=== PATIENT | male | born 1960 | race Caucasian/White ===

== ENCOUNTER → 2021-06-13 09:16 | Outpatient (CLI) | payer OTHER, SELFPAY ==
[2021-06-14 13:33] LABS: SARS-CoV-2 RNA PCR Positive
== END ==
PROVIDERS: PCP Family Medicine; Visit Provider Family Medicine
DX: U07.1 COVID-19 (principal)
CPT/HCPCS: C9803; U0003; U0005

== ENCOUNTER 2021-06-21 07:38 | Outpatient (RCR) | payer OTHER, SELFPAY ==
[2021-06-21 10:05] VITALS: BP 135/75; PULSE 72; RESP 20; TEMP 36.2; O2SAT 100
[2021-06-21] MEDS: ACETAMINOPHEN 325 MG TABLET 650 MG PO (10:07)
[2021-06-21] MEDS: FAMOTIDINE 20 MG TABLET PO (10:08)
[2021-06-21] MEDS: diphenhydrAMINE HCl CAP 25 MG CAPSULE PO (10:08)
[2021-06-21 11:34] VITALS: BP 124/73; PULSE 62; O2SAT 99
== END 2021-06-21 17:00 ==
LOC: AMCINF 07:38
PROVIDERS: PCP Family Medicine; Referring Provider Family Medicine; Visit Provider Internal Medicine Hematology & Oncology
DX: U07.1 COVID-19 (principal); I10 Essential (primary) hypertension
CPT/HCPCS: A9270; M0247

== ENCOUNTER 2021-10-13 12:47 | Outpatient (CLI) | payer OTHER, SELFPAY ==
--- NOTE | 2021-10-13 | ECHO_ITS ---
Patient Info Name: Fausto Morris Age: 61 years : 1960 Gender: Male Ht: 70 in Wt: 190 lbs BSA: 2.08 m2 HR: 62 bpm BP: 162 / 102 mmHg Heart Rhythm: Sinus Rhythm Exam Date: 10/13/2021 1:20 PM Exam Location: [facility] Patient Status: Outpatient Admit Date: 10/13/2021 Staff Ordering Physician: Jarred Bateman MD Spooler Operator Automatic: Raymond Salcedo, TANYA, RT Attending Provider: Jarred Bateman MD Referring Physician: Bhavana LOPEZ; Exam Type: CA echo doppler color flow Study Info Indications R01.1 - Cardiac murmur, unspecified Complete two-dimensional, color flow and Doppler transthoracic echocardiogram is performed. Strain analysis performed. Summary 1. Complete two-dimensional, color flow and Doppler transthoracic echocardiogram is performed. 2. Normal left ventricular size with borderline concentric hypertrophy. Left ventricular systolic function at the lower limit of normal with a calculated ejection fraction of 52%. Normal diastolic dysfunction. Normal global longitudinal strain. 3. Left atrial chamber dimension is mildly enlarged. 4. 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 There is mild to moderate mitral valve regurgitation. 5. There is mild tricuspid valve regurgitation. 6. No pulmonary hypertension, estimated pulmonary arterial systolic pressure is 34 mmHg. 7. Normal sinus rhythm. Left Ventricle Left ventricular chamber dimension is normal. Left ventricular systolic function is mildly reduced, estimated at 50-55%. There is mildly increased left ventricular wall thickness. Left ventricular septal wall motion is normal. The left ventricular diastolic function is normal. Global longitudinal strain is normal at -19 %. Right Ventricle Right ventricular chamber dimension is normal. Right ventricular systolic function is normal. Left Atria Left atrial chamber dimension is mildly enlarged. Right Atria Right atrial chamber dimension is normal. Aortic Valve The aortic valve is trileaflet. There is no aortic valve sclerosis. There is no aortic valve stenosis. There is no aortic valve regurgitation. Pulmonic Valve The pulmonic valve is normal. There is no pulmonic valve stenosis. There is trace pulmonic regurgitation. Mitral Valve The mitral valve has myxomatous leaflets. There is no mitral valve stenosis. 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 There is mild to moderate mitral valve regurgitation. Tricuspid Valve The tricuspid valve leaflets are normal. There is no significant tricuspid valve stenosis. There is mild tricuspid valve regurgitation. No pulmonary hypertension, estimated pulmonary arterial systolic pressure is 34 mmHg. Pericardium/Pleural The pericardium appears normal. There is no pericardial effusion. Inferior Vena Cava Normal inferior vena cava with >50% collapse upon inspiration consistent with Empty right atrial pressure, 10 mmHg. Aorta The aortic root size at the sinus of Valsalva is normal. The prox ascending aorta size is normal. Left Ventricular Outflow Tract Name Value Normal LVOT 2D LVOT Diameter 2.1 cm LVOT Doppler --------
== END 2021-10-13 12:48 | disposition home or self-care (01) ==
LOC: ANHCARD 12:49
PROVIDERS: PCP Family Medicine; Visit Provider Family Medicine
DX: R01.1 Cardiac murmur, unspecified (principal)
CPT/HCPCS: 93306

== ENCOUNTER 2022-02-23 01:19 | Day surgery (SDC) | payer OTHER, SELFPAY ==
[2022-02-22 15:00] VITALS: BMI 27.3
[2022-02-23] VITALS (10 sets, daily range): BP systolic 116–136; BP diastolic 71–85; PULSE 57–69; RESP 12–18; TEMP 36.6; O2SAT 93–99; BMI 28.3
[2022-02-23 07:44] LABS: Basophils Absolute Auto 0.1 K/mm3 (0.0-0.1); Basophils Percent Auto 0.9 % (0.2-1.2); Eosinophils Absolute Auto 0.3 K/mm3 (0-0.3); Eosinophils Percent Auto 3.3 % (0-4.4); Hematocrit 43.6 % (42.0-52.0); Hemoglobin 14.3 g/dL (14.0-18.0); Immature Granulocyte Absolute 0.09 K/mm3 (0.00-0.031); Lymphocytes Absolute Auto 2.02 K/mm3 (0.9-3.2); Lymphocytes Percent Auto 22.9 % (18.3-44.2); Mean Corpuscular HGB Conc 32.8 g/dl (32-36); Mean Corpuscular Hemoglobin 28.7 pg (26-34); Mean Corpuscular Volume 87.6 fl (80-100); Mean Platelet Volume 9.7 fl (7.4-10.4); Monocytes Absolute Auto 0.8 K/mm3 (0.1-0.6); Monocytes Percent Auto 9.1 % (2.6-8.5); Neutrophils Absolute Auto 5.6 K/mm3 (1.3-6.7); Neutrophils Percent Auto 62.8 % (45.5-73.1); Platelet Count Result 283 k/mm3 (150-375); Red Blood Count 4.98 M/mm3 (4.6-6.20); Red Cell Distribution Width 12.9 % (11.5-14.5); White Blood Count 8.8 K/mm3 (4.5-10.0)
[2022-02-23 07:52] LABS: Anion Gap 12 mmol/L (8-16); Blood Urea Nitrogen 15 mg/dL (9-20); Calcium 8.9 mg/dL (8.4-10.2); Carbon Dioxide 31 mmol/L (22-30); Chloride 99 mmol/L (98-107); Estimated CRCL calculation 71 ml/min; Estimated Glomerular Filt Rate > 60; Glucose 98 mg/dL (65-110); Potassium 3.7 mmol/L (3.4-5.0); Sodium 142 mmol/L (137-145)
--- NOTE | 2022-02-23 08:34 | WPDMODSED ---
Moderate Sedation Note-Pt Data Patient Data Diagnosis: Exertional dyspnea mitral regurgitation abnormal nuclear stress test Present Complaint: PARDO Procedure to be performed/Plan: left heart catheterization Allergies Allergy/AdvReac Type Severity Reaction Status Date / Time No Known Allergies Allergy Mild Verified 02/23/22 07:29 Home Medications Medication Instructions Recorded Confirmed Type M.V.I. Adult 1 tablet PO DAILY 02/22/22 02/22/22 History aspirin 81 mg chewable tablet 81 mg PO DAILY 02/22/22 02/22/22 History candesartan 8 mg tablet 8 mg PO DAILY 02/22/22 02/22/22 History escitalopram oxalate 10 mg tablet 10 mg PO DAILY 02/22/22 02/22/22 History indapamide 2.5 mg tablet 2.5 mg PO DAILY 02/22/22 02/22/22 History Current Medications: Active Medications Sodium Chloride (Normal Saline Iv) 500 mls @ 100 mls/hr IV CONT .Q5H [facility], [facility] Sedation/Anesthesia: No previous sedation/anesthesia problems (including family history). [facility] Social History Social History Smoking status: Former smoker Tobacco type: cigarettes Alcohol intake: former Substance use type: does not use Living arrangements: with family Spiritual care concerns: No Mod Sed Physical Exam Physical Exam Pre Procedural Exam: Normal: Appearance, Nose, Neck, Throat, Airway, Lungs, Heart Size, Heart Rate, Heart Rhythm, Neuro Exam and Extremities Hours since solid foods: 12 Hours since liquid intake: 12 Mallampati Classification: class II Internal Medicine - PN: Obj Da Vital Signs Vital Signs: Vital Signs - 24 hr 02/23/22 07:30 Temperature 36.6 C Pulse Rate 66 Respiratory Rate 16 Blood Pressure 136/79 Pulse Oximetry 98 Oxygen Delivery Room Air Meds/Results Medications: Active Medications Generic Name Dose Route Start Last Admin Trade Name Freq PRN Reason Stop Dose Admin Sodium Chloride 500 mls @ 100 mls/hr 02/23/22 07:00 Normal Saline Iv IV CONT .Q5H [facility] Labs CBC & Chem 7: 02/23/22 07:30 02/23/22 07:30 Labs: Laboratory Results - last 24 hr 02/23/22 02/23/22 07:30 07:30 WBC 8.8 RBC 4.98 Hgb 14.3 Hct 43.6 MCV 87.6 MCH 28.7 MCHC 32.8 RDW 12.9 Plt Count 283 MPV 9.7 Immature Gran % (Auto) 1.0 H Neut % (Auto) 62.8 Lymph % (Auto) 22.9 Howard % (Auto) 9.1 H Eos % (Auto) 3.3 Baso % (Auto) 0.9 Lymph # (Auto) 2.02 Howard # (Auto) 0.8 H Eos # (Auto) 0.3 Baso # (Auto) 0.1 Abs Immat Gran (auto) 0.09 H Absolute Neuts (auto) 5.6 Absolute Nucleated RBC 0.0 Nucleated RBC % 0.0 Sodium 142 Potassium 3.7 Chloride 99 Carbon Dioxide 31 H Anion Gap 12 BUN 15 Creatinine 1.00 Estim Creat Clear Calc 71 Estimated GFR > 60 Glucose 98 Calcium 8.9 ASA Classification/Sedation ASA Classification/Sedation ASA Class: II Emergent: No Risks: Risks, benefits and alternatives explained and patient/family accepted plan for sedation. Patient re-evaluated immediately prior to sedation.
--- NOTE | 2022-02-23 08:36 | PM.IMHP ---
H&P: HPI History of Present Illness Date/Time: 02/23/22 08:36 Chief Complaint: exertional dyspnea Narrative: this is a 61-year-old man who was referred to our practice because of mitral valve regurgitation. He has been reporting symptoms of exertional dyspnea and fatigue since having coronavirus in 2020. He was found to have myxomatous appearing mitral valve leaflets and moderate MR. He had a nuclear stress test done in the office which suggests an anterior wall infarction. The patient's electrocardiogram and wall motion analysis JAMES however do not suggest this. For further evaluation of this a angiogram has been recommended and this is scheduled for today. [facility] Social History Social History Smoking status: Former smoker Tobacco type: cigarettes Alcohol intake: former Substance use type: does not use Living arrangements: with family Spiritual care concerns: No Meds Home Medications and Allergies Home Medications Medication Instructions Recorded Confirmed Type M.V.I. Adult 1 tablet PO DAILY 02/22/22 02/22/22 History aspirin 81 mg chewable tablet 81 mg PO DAILY 02/22/22 02/22/22 History candesartan 8 mg tablet 8 mg PO DAILY 02/22/22 02/22/22 History escitalopram oxalate 10 mg tablet 10 mg PO DAILY 02/22/22 02/22/22 History indapamide 2.5 mg tablet 2.5 mg PO DAILY 02/22/22 02/22/22 History Allergies Allergy/AdvReac Type Severity Reaction Status Date / Time No Known Allergies Allergy Mild Verified 02/23/22 07:29 Vital Signs Vital Signs - 24 hr 02/23/22 07:30 Temperature 36.6 C Pulse Rate 66 Respiratory Rate 16 Blood Pressure 136/79 Pulse Oximetry 98 Oxygen Delivery Room Air Exam Const: General: comfortable and no acute distress HENMT: Mouth: Yes moist mucous membranes Eyes: Sclera: sclerae normal Pupils: Equal, round and reactive pupils present Neck: Neck: supple and no JVD Other: Carotid pulses are intact and without bruits Resp: Effort & Inspection: normal respiratory effort Auscultation: clear to auscultation bilaterally Cardio: Rate: regular rate Rhythm: regular rhythm Other: soft holosystolic apical murmur GI: GI Palp: Yes Soft to palpation Auscultation: normal bowel sounds : Male General Exam: Yes normal external exam Skin: General skin exam: normal color Neuro: Other: alert and oriented x3 Extrem: General: normal to inspection H&P: Results Labs Labs: Short CBC 02/23/22 Range/Units 07:30 WBC 8.8 (4.5-10.0) K/mm3 Hgb 14.3 (14.0-18.0) g/dL Hct 43.6 (42.0-52.0) % Plt Count 283 (150-375) k/mm3 BMP 02/23/22 07:30 Sodium 142 Potassium 3.7 Chloride 99 Carbon Dioxide 31 H BUN 15 Creatinine 1.00 Glucose 98 Calcium 8.9 Assessment and Plan Assessment and plan (1) Abnormal stress test: Code(s): R94.39 - Abnormal result of other cardiovascular function study Status: Acute Plan this is a 61-year-old man not previously known to have coronary disease. He is undergoing evaluation because of valvular heart disease and exertional dyspnea. A nuclear stress test was abnormal suggesting there might have been a previous anterior infarction. For further evaluation of this angiography has been scheduled for today. Cesar Alvarenga MD FACC
--- NOTE | 2022-02-23 09:04 | WPDCARDPROC ---
Cardiac Cath Procedure Note Date of procedure:: 02/23/22 Performing physician:: Cesar Alvarenga MD Indication:: exertional dyspnea mitral regurgitation abnormal nuclear stress test Brief clinical history:: this is a 61-year-old man with no history of coronary disease. He underwent stress testing to investigate dyspnea and the findings indicated evidence of a previous anterior infarction. In this situation angiogram has been recommended Procedure Procedure performed:: left ventriculogram coronary angiogram Angio-Seal to right femoral artery Sedation/Medication given:: fentanyl 50 mg Versed 2 mg case start time 8:44 a.m. case end time 8:58 a.m. sedation provided by Nieves Matthews RN, trained observer Access site:: right femoral artery Estimated blood loss:: 20 cc Procedure note:: patient was brought to the cardiac catheterization lab in the postabsorptive state where the right femoral triangle was prepared and draped in usual fashion. Anesthesia was provided with 1% lidocaine infiltrated locally. Using modified Seldinger technique a 5 Moldovan sheath was placed into the right common femoral artery and then left heart catheterization carried out. A 5 Moldovan angled pigtail catheter was used to measure left-sided hemodynamics and to perform a left ventriculogram in the HUMPHREYS projection. Following this standard 5 Moldovan FL4 catheter was used to engage and inject left coronary artery and then a 5 Moldovan JR4 catheter was used to engage inject the right coronary artery. Procedure was then terminated an angiogram was done of the femoral artery through the sheath after which a 6 Moldovan Angio-Seal device was deployed with a good hemostatic result. There were no apparent complications and he left the supervisor dental laboratory with no signs of a groin hematoma. Findings:: Hemodynamics: Central aortic pressure is 126 over 74 left ventricle 126/3 end-diastolic 12 systolic across the aortic valve. Left ventricle: The LV is mildly enlarged. There is modest global hypokinesia noted with a global ejection fraction of 45%. Mild angiographic evidence of mitral regurgitation is seen. The left main coronary artery is widely patent the left anterior descending is a moderate caliber artery extending down to around the apex. The LAD and its branches are smooth and angiographically normal in appearance the circumflex is a medium caliber vessel giving rise to the marginal branches. The circumflex and its branches are angiographically smooth and normal in appearance. The right coronary artery is large caliber and dominant to the posterior circulation. The right coronary is somewhat tortuous but otherwise angiographically smooth and normal in appearance. Conclusion:: 1. Right coronary dominant circulation with no angiographic evidence of coronary artery disease 2. modest left ventricular systolic dysfunction 3. mild MR as judged by left ventriculogram 4. false-positive nuclear stress test Cesar Alvarenga MD FACC
--- NOTE | 2022-02-23 12:00 | SUR.PHASEII ---
1139 Dr. Cho contacted regarding patient and his 's request to speak with him to review his test results prior to being discharged.
--- NOTE | 2022-02-23 14:01 | SUR.PHASEII ---
Cristiano Randall APRN at bedside discussing patient's cath findings and other recent testing on behalf of Dr. Cho. Patient and patient's had their questions answered. He was discharged in stable condition following discharge instructions including activity/driving restrictions post cath and moderate sedation as well as instructions regarding new medications and follow up. They verbalized understanding of instructions and had no further questions.
== END 2022-02-23 13:40 | disposition home or self-care (01) ==
PROVIDERS: PCP Family Medicine; Visit Provider Specialist
PROC: 4A023N7 Measurement of Cardiac Sampling and Pressure, Left Heart, Percutaneous Approach (ICD-10-PCS; CPT 93452; principal; 2022-02-23 08:30)
DX: R94.39 Abnormal result of other cardiovascular function study (principal); I77.1 Stricture of artery; R06.09 Other forms of dyspnea; I34.0 Nonrheumatic mitral (valve) insufficiency; Z87.891 Personal history of nicotine dependence; Z79.82 Long term (current) use of aspirin
CPT/HCPCS: 36415; 80048; 85025; 93458; C1760; C1887; C1894; G0269; J1644; J2250; J3010; J7040

== ENCOUNTER 2022-05-22 12:15 | Emergency (ER) | payer OTHER, SELFPAY | END 2022-05-22 13:15 | disposition left against medical advice (07) | PROVIDERS: Emergency Provider Nurse Practitioner Family; PCP Family Medicine | DX: Z53.21 Procedure and treatment not carried out due to patient leaving prior to being seen by health care provider (principal) | CPT/HCPCS: 99199 ==

== ENCOUNTER 2022-06-27 13:30 | Outpatient (RCR) | payer SELFPAY ==
[2022-03-16 09:05] VITALS: PULSE 67
== END 2022-07-06 08:24 | disposition home or self-care (01) ==
LOC: ANHCPREHAB 13:30
PROVIDERS: PCP Family Medicine; Visit Provider Internal Medicine Cardiovascular Disease
DX: I50.9 Heart failure, unspecified (principal)
CPT/HCPCS: 93798; 99199

== ENCOUNTER 2024-10-28 00:32 | Day surgery (SDC) | payer OTHER, SELFPAY ==
[2024-10-15 11:27] VITALS: BMI 28.0
--- OUTSIDE RECORDS SUMMARY | 2024-10-28 00:34 | XMS_ITS | Clinical Summary ---
Author Organization [facility] Address [address] [place] [address] Care Team Providers Care Tour Narrator Name Role Phone Jarred Bateman MD Primary Care Provider [phone] Source Comments [facility],non-owned Affiliates and Associated Physician Practices is amultiple site organization consisting of ambulatory clinics and hospital sitesin [place], [place], [place]. This disclosure is being madepursuant to the Care Everywhere program and may not contain all information available regarding this patient. Last updated 18.[facility] Allergies No known active allergies Medications * Be aware that medications may not be up to date on this document. Alwaysverify current medications with the patient. lisinopril (PRINIVIL; ZESTRIL) 20 MG tablet TK 1 T PO QD 1 02/20/2019 Active indapamide (LOZOL) 2.5 MG tablet 03/01/2019 Active Social History Tobacco Use Types Packs/Day Years Used Date Smoking Tobacco: Never Smokeless Tobacco: Never Alcohol Use Standard Drinks/Week Comments Yes 0 (1 standard drink = 0.6 oz pur e alcohol) Sex and Gender Information Value Date Recorded Sex Assigned at Not on file Legal Sex Male 10:08 AM CDT Gender Identity Not on file Sexual Orientation Not on file Last Filed Vital Signs Vital Sign Reading Time Taken Comments Blood Pressure 120/82 04/13/2019 3:02 PM CDT Pulse 78 04/13/2019 3:02 PM CDT Temperature 37 C (98.6 F) 04/13/2019 3:02 PM CDT Respiratory Rate 18 04/13/2019 3:02 PM CDT Oxygen Saturation 96% 04/13/2019 3:02 PM CDT Inhaled Oxygen Concentration - - Weight 88.9 kg (196 lb) 04/13/2019 3:02 PM CDT Height 175.3 cm (5' 9 ) 04/13/2019 3:02 PM CDT Body Mass Index 28.94 04/13/2019 3:02 PM CDT Plan of Treatment Health Maintenance Due Date Last Done Comments COLOGUARD (AGES 45-75) - COL ON CA SCREENING 1960 COLON MONITORING 1960 COLONOSCOPY - COLON CA SCREENING 1960 CT COLONOGRAPHY - COLON CA SCREENING 1960 Colorectal Cancer Screening 1960 FIT - COLON CA SCREENING 1960 FLEX SIG - COLON CA SCREENING 1960 LIPID TESTING 1960 HIV SCREENING 10/10/1975 HEPATITIS C SCREENING 10/05/1978 DTAP/TDAP/TD VACCINES (1 - Tdap) 10/10/1979 PNEUMOCOCCAL VACCINE 50+ (1 of 1 - PCV) 2010 ZOSTER VACCINE (1 of 2) 2010 SCREENING FOR DIABETES 04/13/2019 COVID-19 VACCINE (1 - 2023-2 5 season) 2024 DEPRESSION SCREENING 06/17/2024 INFLUENZA VACCINE (Season Ended) 2025 Respiratory Syncytial Virus (RSV) Vaccine Pt: or over 60 yrs (1 - 1-dose 75+ series) 10/10/2035 HEPATITIS B VACCINE Aged Out No longe r eligible based on patient's age to complete this topic HIB VACCINE Aged Out No longer eligi ble based on patient's age to complete this topic HPV VACCINE Aged Out No longer eligi ble based on patient's age to complete this topic MENINGOCOCCAL (Group B) VACC INE SHARED DECISION-MAKING Aged Out No longer eligibl e based on patient's age to complete this topic MENINGOCOCCAL GROUPS A/C/Y/W VACCINE Aged Out No longer eligible b ased on patient's age to complete this topic Insurance [employer] Member Subscriber Plan / Payer (Ef fective 2005-Present) Name:Trino Rain Member ID:[id number] Relation to Subscriber:Self Name:TRINO RAIN Subscriber ID:[id number] Payer ID:Not on file Group ID:Not on file Type:HMO Address: [facility] [id number] [place] [id number] [employer] Member Subscriber Plan / Payer (Ef fective 2005-Present) Name:Trino Rain Member ID:[id number] Relation to Subscriber:Self Name:TRINO RAIN Subscriber ID:[id number] Payer ID:Not on file Group ID:Not on file Type:HMO Address: [facility] [id number] [place] [id number] [employer] Member Subscriber Plan / Payer (Ef fective 2005-Present) Name:Trino Rain Member ID:[id number] Relation to Subscriber:Self Name:TRINO RAIN Subscriber ID:[id number] Payer ID:Not on file Type:HMO Address: [address] [place] [id number] [employer] Care Teams Tour Narrator Relationship Specialty Start Date End Date Jarred Bateman MD [address] [place] [address] PCP - General Family Medicine 04/13/19
--- OUTSIDE RECORDS SUMMARY | 2024-10-28 00:34 | XMS_ITS | Referral Summary ---
Author Organization [facility] Address [address] [place] [address] Care Team Providers Care District Plant Supervisor Name Role Phone Jarred Bateman MD Primary Care Provider Encounters Date Type Department Care Team Description 10/07/2024 Results Follow-Up [facility] Cardiology [address] [place] [address] [address] [place] [phone] Elsi Sheehan MD 09/28/2024 2:00 PM CDT Ancillary Procedure [facility] Cardiology [address] [place] [address] [address] [place] [phone] Nonischemic cardiomyopathy (HCC); Nonrheumatic mitral valve insufficiency 08/27/2024 1:00 PM CDT Office Visit [facility] Cardiology [address] [place] [address] [address] [place] [phone] Elsi Sheehan MD Nonischemic cardiomyopathy (HCC) (Primary Dx); Nonrheumatic mitral valve insufficiency; Palpitations; PVC (premature ventricular contraction); Essential hypertension; Hyperlipidemia LDL goal <100 from Last 3 Months Allergies No known active allergies Medications multivitamin with minerals tablet Take 1 tablet by mouth daily Active Entresto 24-26 mg tablet TAKE 1 TABLET BY MOUTH TWICE DAILY 180 tablet 3 10/14/2023 Active metoprolol XL (TOPROL-XL) 25 mg extended release tabletIndication s:PVC (premature ventricular contraction) TAKE 1 TABLET(25 MG) BY MOUTH DAILY 90 tablet 2 04/20/2024 Active Active Problems Problem Noted Date Diagnosed Date Periodic limb movement 04/11/2023 Nonsmoker 04/11/2023 Obstructive sleep apnea 09/24/2022 Hypersomnia 07/23/2022 PVC (premature ventricular contraction) 03/07/20 Nonischemic cardiomyopathy 03/07/2022 Hyperlipidemia LDL goal <100 01/12/2022 Essential hypertension 01/12/2022 History of COVID-19 01/12/2022 Nonrheumatic mitral valve insufficiency 01/13/20 Weakness 01/12/2022 Other fatigue 01/12/2022 PARDO (dyspnea on exertion) 01/12/2022 Palpitations 01/12/2022 MVP (mitral valve prolapse) 01/12/2022 Long COVID 01/12/2022 Immunizations Immunization Administration Dates Next Due Pneumococcal Polysaccharide PPV23 06/11/2023 Social History Tobacco Use Types Packs/Day Years Used Date Smoking Tobacco: Former Cigarettes 0.5 3 0 06/17/1976 - 1979 Smokeless Tobacco: Never Tobacco Cessation:Counseling Given: Not Answered AUDIT-C Answer Date Recorded Q1: How often do you have a drink containing alc ohol? 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 Gender Identity Not on file Sexual Orientation Not on file Last Filed Vital Signs Vital Sign Reading Time Taken Comments Blood Pressure 98/66 08/27/2024 1:17 PM CDT Pulse 70 08/27/2024 1:17 PM CDT Temperature 36.8 C (98.3 F) 06/11/2023 2:09 PM INDUSTRIAL EDUCATION INSTRUCTOR Respiratory Rate 18 04/11/2023 1:51 PM CDT Oxygen Saturation 93% 08/27/2024 1:17 PM CDT Inhaled Oxygen Concentration - - Weight 89.8 kg (198 lb) 08/27/2024 1:17 PM CDT Height 175.3 cm (5' 9 ) 08/27/2024 1:17 PM CDT Body Mass Index 29.24 08/27/2024 1:17 PM CDT Plan of Treatment Not on file Procedures Procedure Name Priority Date/Time Associated Diagnosis Comments TRANSTHORACIC ECHO (TTE) COMPLETE W DOPPLER/CF WO CONTRAST Routine 09/28/2024 2:31 PM CDT Nonischemic cardiomyopathy (HCC) Nonrheumatic mitral valve insufficiency POCT LIPID PANEL Routine 08/27/2024 12:2 6 PM CDT Hyperlipidemia LDL goal <100 from Last 3 Months Results * TRANSTHORACIC ECHO (TTE) COMPLETE W DOPPLER/CF WO CONTRAST (09/28/2024 2:31 PM CDT) Anatomical Region Laterality Modality Ultrasound 09/28/2024 2:06 PM CDT Narrative 09/28/2024 2:[address] [facility] Cardiology [address] [facility] [address] [address] [address] [facility] [address], [place] [address] P:[phone] P:[phone] Echocardiographic Report Patient Name: TRINO RAIN R : 1960 Study Date: 09/28/2024 2:06:19 PM Gender: M Tech: Location: [facility] Provider: ELSI SHEEHAN Height(Cm): 175 BSA: 2.09 Weight(Kg): 89.8 Heart Rate: 68 BP: 98 / 60 Quality: Good Order Provider: ELSI SHEEHAN PROCEDURES: Echocardiographic Report: Transthoracic echocardiogram with complete 2D, M-Mode, and color Doppler examination. INDICATIONS: I42.8 Other cardiomyopathies and I34.0 Nonrheumatic mitral (valve) insufficiency. MEASUREMENTS: 2D/MM Value Range Doppler Value Range EF Mod BP 53 % [ 52 - 72 ] GARCIA Vmax 2.23 cm2 [ 2.00 - 4.00 ] EF Teich MM 70 % [ 52 - 72 ] AV Mean PG 5 mmHg LVIDd 2D 5.19 cm [ 4.20 - 5.80 ] AV Peak Timothy 1.43 m/s [ 1.00 - 1.70 ] LVIDd MM 5.54 cm [ 4.20 - 5.80 ] AV Peak PG 8 mmHg LVIDs 2D 2.71 cm [ 2.50 - 4.00 ] AV VTI 24.90 cm LVIDs MM 3.32 cm [ 2.50 - 4.00 ] LVOT Diam 2.04 cm [ 1.70 - 2.10 ] LVPWd 2D 1.03 cm [ 0.60 - 1.00 ] LVOT Peak Timothy 0.90 m/s [ 0.70 - 1.10 ] LVPWd MM 1.12 cm [ 0.60 - 1.00 ] LVOT VTI 17.20 cm IVSd 2D 1.14 cm [ 0.60 - 1.00 ] MV E Peak Timothy 0.80 m/s [ 0.60 - 1.30 ] IVSd MM 1.12 cm [ 0.60 - 1.00 ] MV A Peak Timothy 0.50 m/s [ 1.00 - 1.20 ] LA Dimension MM 3.72 cm [ 3.00 - 4.00 ] MV Decel Time 137 msec [ 104 - 258 ] AoR Diam MM 3.55 cm [ 3.10 - 3.70 ] PV Peak Timothy 1.42 m/s [ 0.40 - 0.80 ] LA Volume Index 32 cc/m2 [ 16 - 34 ] TR Peak Timothy 2.70 m/s [ 1.00 - 2.80 ] ACS MM 2.54 cm [ 1.50 - 2.60 ] TR Peak PG 29 mmHg RVSP 37.00 mmHg [ 10.00 - 36.00 ] Lateral E` 0.11 m/s [ 0.10 - 0.15 ] E` 0.06 m/s E/E` 7 2D/MM Value Range Doppler Value Range - FINDINGS: Interpretation Site: Exam was interpreted at [facility]. Left Ventricle: Normal left ventricular systolic function. No focal wall motion abnormalities. Normal left ventricular size. Normal left ventricular wall thickness. Normal left ventricular diastolic function. Ejection fraction is measured at 53 %. Global Longitudinal Strain is -19 %. GLS is normal. Right Ventricle: Normal right ventricular size. Normal right ventricular systolic function. Left Atrium: The left atrium is normal in size. Right Atrium: The right atrium is normal in size. Atrial Septum: Normal atrial septum. Mitral Valve: Mild mitral valve prolapse involving the anterior mitral leaflet. Mild mitral valve prolapse involving the posterior mitral valve. Mild mitral valve regurgitation. There is no hemodynamically significant mitral stenosis by Doppler. Aortic Valve: Normal appearance of the aortic valve. No evidence of hemodynamically significant aortic stenosis by Doppler. Trileaflet aortic valve. No aortic regurgitation. Tricuspid Valve: Normal appearance of the tricuspid valve. Estimated peak RVSP is 37 mmHg. Mild tricuspid regurgitation. Pulmonic Valve: Normal appearance of the pulmonic valve. No evidence of pulmonic regurgitation. Pericardium: Normal pericardium with no significant pericardial effusion. Aorta: Sinus of Valsalva is normal. IVC: Normal size and normal respiratory collapse consistent with normal right atrial pressure (<5 mmHg). Pulmonary Artery: Normal pulmonary artery size. CONCLUSIONS: Normal left ventricular systolic function. No focal wall motion abnormalities. Normal left ventricular size. Normal left ventricular wall thickness. Normal left ventricular diastolic function. Ejection fraction is measured at 53 %. Global Longitudinal Strain is -19 %. GLS is normal. Mild mitral valve prolapse involving the anterior and posterior mitral leaflets. Mild mitral valve regurgitation. Estimated peak RVSP is 37 mmHg. Mild tricuspid regurgitation. Electronically Signed By: Dr. Lora Dawson [facility] 09/28/2024 2:59:23 PM CDT Procedure Note Lora Dawson MD - 09/28/2024 [facility] Cardiology [address] [facility] [address] [address] [address] [facility] [address], [place] [address] P:[phone] P:[phone] Echocardiographic Report Patient Name: TRINO RAIN R : 1960 Study Date: 09/28/2024 2:06:19 PM Gender: M Tech: Location: [place] Ref Provider: ELSI SHEEHAN Height(Cm): 175 BSA: 2.09 Weight(Kg): 89.8 Heart Rate: 68 BP: 98 / 60 Quality: Good Order Provider: ELSI SHEEHAN PROCEDURES: Echocardiographic Report: Transthoracic echocardiogram with complete 2D, M-Mode, and color Dopplerexamination. INDICATIONS: I42.8 Other cardiomyopathies and I34.0 Nonrheumatic mitral (valve)insufficiency. MEASUREMENTS: 2D/MM Value Range Doppler ValueRange EF Mod BP 53 % [ 52 - 72 ] GARCIA Vmax 2.23cm2 [ 2.00 - 4.00 ] EF Teich MM 70 % [ 52 - 72 ] AV Mean PG 5mmHg LVIDd 2D 5.19 cm [ 4.20 - 5.80 ] AV Peak Timothy 1.43m/s [ 1.00 - 1.70 ] LVIDd MM 5.54 cm [ 4.20 - 5.80 ] AV Peak PG 8mmHg LVIDs 2D 2.71 cm [ 2.50 - 4.00 ] AV VTI 24.90cm LVIDs MM 3.32 cm [ 2.50 - 4.00 ] LVOT Diam 2.04 cm[ 1.70 - 2.10 ] LVPWd 2D 1.03 cm [ 0.60 - 1.00 ] LVOT Peak Timothy 0.90m/s [ 0.70 - 1.10 ] LVPWd MM 1.12 cm [ 0.60 - 1.00 ] LVOT VTI 17.20cm IVSd 2D 1.14 cm [ 0.60 - 1.00 ] MV E Peak Timothy 0.80m/s [ 0.60 - 1.30 ] IVSd MM 1.12 cm [ 0.60 - 1.00 ] MV A Peak Timothy 0.50m/s [ 1.00 - 1.20 ] LA Dimension MM 3.72 cm [ 3.00 - 4.00 ] MV Decel Time 137msec [ 104 - 258 ] AoR Diam MM 3.55 cm [ 3.10 - 3.70 ] PV Peak Timothy 1.42m/s [ 0.40 - 0.80 ] LA Volume Index 32 cc/m2 [ 16 - 34 ] TR Peak Timothy 2.70m/s [ 1.00 - 2.80 ] ACS MM 2.54 cm [ 1.50 - 2.60 ] TR Peak PG 29mmHg RVSP 37.00 mmHg [ 10.00 - 36.00 ] Lateral E` 0.11 m/s [ 0.10 - 0.15 ] E` 0.06 m/s E/E` 7 2D/MM Value Range Doppler ValueRange - FINDINGS: Interpretation Site: Exam was interpreted at [facility]. Left Ventricle: Normal left ventricular systolic function. No focal wall motionabnormalities. Normal left ventricular size. Normal left ventricular wall thickness. Normal leftventricular diastolic function. Ejection fraction is measured at 53 %. GlobalLongitudinal Strain is -19 %. GLS is normal. Right Ventricle: Normal right ventricular size. Normal right ventricular systolicfunction. Left Atrium: The left atrium is normal in size. Right Atrium: The right atrium is normal in size. Atrial Septum: Normal atrial septum. Mitral Valve: Mild mitral valve prolapse involving the anterior mitral leaflet. Mildmitral valve prolapse involving the posterior mitral valve. Mild mitral valveregurgitation. There is no hemodynamically significant mitral stenosis by Doppler. Aortic Valve: Normal appearance of the aortic valve. No evidence of hemodynamicallysignificant aortic stenosis by Doppler. Trileaflet aortic valve. No aortic regurgitation. Tricuspid Valve: Normal appearance of the tricuspid valve. Estimated peak RVSP is 37 mmHg.Mild tricuspid regurgitation. Pulmonic Valve: Normal appearance of the pulmonic valve. No evidence of pulmonicregurgitation. Pericardium: Normal pericardium with no significant pericardial effusion. Aorta: Sinus of Valsalva is normal. IVC: Normal size and normal respiratory collapse consistent with normal rightatrial pressure (<5 mmHg). Pulmonary Artery: Normal pulmonary artery size. CONCLUSIONS: Normal left ventricular systolic function. No focal wall motionabnormalities. Normal left ventricular size. Normal left ventricular wall thickness. Normal leftventricular diastolic function. Ejection fraction is measured at 53 %. GlobalLongitudinal Strain is -19 %. GLS is normal. Mild mitral valve prolapse involving the anterior and posterior mitralleaflets. Mild mitral valve regurgitation. Estimated peak RVSP is 37 mmHg. Mild tricuspid regurgitation. Electronically Signed By: Dr. Lora Dawson [facility] 09/28/2024 2:59:23 PM CDT Elsi Sheehan MD CV ECHO PROCEDURES Final Result * POCT lipid panel (08/27/2024 12:26 PM CDT) Cholesterol, POC 190 mg/dL HDL, POC <15 mg/dL Triglycerides, POC 114 mg/dL LDL Cholesterol POC 153 mg/dL Chol/HDL Ratio, POC N/A Non-HDL Cholesterol, POC N/A mg/dL Cholesterol Total, POC 190 mg/dL Capillary blood 08/27/2024 1 2:26 PM CDT Elsi Sheehan MD POINT OF CARE TEST ORDERA BLES Final Result from Last 3 Months Insurance [facility] [id number] [employer] [facility] [id number] [facility] [id number] Care Teams District Plant Supervisor Relationship Specialty Start Date End Date Jarred Bateman MD [address] [place] [id number] PCP - General Family Medicine 10/13/21
--- OUTSIDE RECORDS SUMMARY | 2024-10-28 00:35 | XMS_ITS | Encounter Summary ---
Author Organization [facility] Healthcare Address [address] [place] [address] Care Team Providers Care Lacquer Spray Booth Operator Name Role Phone Jarred Bateman MD Primary Care Provider [phone] Encounter Details Date Type Department Care Team (Late st Contact Info) Description 10/07/2024 Results Follow-Up [facility] Cardiology [address] [place] [address] Rambo Cho MD [address] [facility] [address] [place], [place] [id number] Social History Tobacco Use Types Packs/Day Years Used Date Smoking Tobacco: Former Cigarettes 0.5 3 0 06/17/1976 - 1979 Smokeless Tobacco: Never AUDIT-C Answer Date Recorded Q1: How often do you have a drink containing alc ohol? 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
--- OUTSIDE RECORDS SUMMARY | 2024-10-28 00:35 | XMS_ITS ---
Author Organization Unknown Medications Medication Instructions Effective Dates (start - stop) Status levothyroxine sodium 0.075 M G Oral Tablet - Completed 24 HR metoprolol succinate 2 5 MG Extended Release Oral Tablet - Complete d sacubitril 24 MG / valsartan 26 MG Oral Tablet [Entresto] - Completed 24 HR metoprolol succinate 2 5 MG Extended Release Oral Tablet - Complete d sacubitril 24 MG / valsartan 26 MG Oral Tablet [Entresto] - Completed duloxetine 30 MG Delayed Rel ease Oral Capsule - Completed 24 HR metoprolol succinate 2 5 MG Extended Release Oral Tablet - Complete d duloxetine 60 MG Delayed Rel ease Oral Capsule - Completed 24 HR metoprolol succinate 2 5 MG Extended Release Oral Tablet - Complete d levothyroxine sodium 0.075 M G Oral Tablet - Completed duloxetine 60 MG Delayed Rel ease Oral Capsule - Completed duloxetine 60 MG Delayed Rel ease Oral Capsule - Completed levothyroxine sodium 0.075 M G Oral Tablet - Completed levothyroxine sodium 0.075 M G Oral Tablet - Completed sacubitril 24 MG / valsartan 26 MG Oral Tablet [Entresto] - Completed Patient Care team information Name Category Status Period Participants - - Proposed period not known -
--- OUTSIDE RECORDS SUMMARY | 2024-10-28 00:35 | XMS_ITS | Clinical Summary ---
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 Gender Identity Not on file Sexual Orientation Not on file Plan of Treatment Health Maintenance Due Date Last Done Comments Colorectal Cancer Screening Colonoscopy (10 Years) 1960 Annual Physical 10/10/1963 Hepatitis C 1978 DTaP, Tdap and Td Vaccines ( 1 - Tdap) 10/10/1979 Pneumococcal Vaccine: 50+ Years (1 of 1 - PCV) 2010 Zoster Vaccines (1 of 2) 2010 COVID-19 Vaccine (3 - 2023-2 5 season) 2024 10/03/2020, 09/12/2020 RSV Immunization or 60+ Years (1 - 1-dose 75+ series) 10/10/2035 Meningococcal B Vaccine Aged Out No l onger eligible based on patient's age to complete this topic Meningococcal Vaccine Aged Out No farshad mireya eligible based on patient's age to complete this topic RSV Immunizations Under 20 Months Aged Out No longer eligible b ased on patient's age to complete this topic Insurance [employer] [facility] Care Teams Project Controls Scheduler Relationship Specialty Start Date End Date Jarred Bateman MD [address] [place] [id number] PCP - General FAMILY PRACTICE 05/05/19
--- OUTSIDE RECORDS SUMMARY | 2024-10-28 00:35 | XMS_ITS | Clinical Summary ---
Author Organization [facility] Address [address] [place] [address] Care Team Providers Care Nut Roaster Name Role Phone Jarred Bateman MD Primary Care Provider [phone] Allergies No known active allergies Medications multivitamin [...] Hypersomnia 07/23/2022 PVC (premature ventricular contraction) 03/07/20 22 Nonischemic cardiomyopathy 03/07/2022 Hyperlipidemia LDL goal <100 01/12/2022 Essential hypertension 01/12/2022 History of COVID-19 01/12/2022 Nonrheumatic mitral valve insufficiency 01/13/20 22 Weakness 01/12/2022 Other fatigue 01/12/2022 PARDO (dyspnea on exertion) 01/12/2022 Palpitations 01/12/2022 MVP (mitral valve prolapse) 01/12/2022 Long COVID 01/12/2022 Encounters Date Type Department Care Team Description 10/07/2024 Results Follow-Up [facility] Cardiology [address] [facility] [address] [place] [address] Elsi Sheehan MD 09/28/2024 2:00 PM CDT Ancillary Procedure [facility] Cardiology [address] [place] [address] Nonischemic cardiomyopathy (HCC); Nonrheumatic mitral valve insufficiency 08/27/2024 1:00 PM CDT Office Visit [facility] Cardiology [address] [place] [address] Elsi Sheehan MD Nonischemic cardiomyopathy (HCC) (Primary Dx); Nonrheumatic mitral valve insufficiency; Palpitations; PVC (premature ventricular contraction); Essential hypertension; Hyperlipidemia LDL goal <100 from Last 3 Months Immunizations Immunization Administration Dates Next Due Pneumococcal Polysaccharide PPV23 06/11/2023 Surgical History Surgery Date Site/Laterality Comments MELANOMA RESECTION CHOLECYSTECTOMY WRIST SURGERY FRACTURE SURGERY 1986 Medical History Medical History Date Comments Hypertension Long COVID Cancer (HCC) melanoma, basil cell carcinoma Migraines started in my 30's Sleep apnea mild Family History Medical History Relation Name Comments Arthritis Brother Woody Rheum arthritis Brother Woody Cancer Father Gerardo Dementia Mother Arthritis Sister Cathy Rheum arthritis Sister Cathy Relation Name Status Comments Brother Woody Alive Father Gerardo Mother Alive Sister Cathy Alive Social History Tobacco Use Types Packs/Day Years [...] on file 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 Gender Identity Not on file Sexual Orientation Not on file Obstetrics History Last Filed Vital Signs Vital Sign Reading Time Taken Comments Blood Pressure 98/66 08/27/2024 1:17 PM CDT Pulse 70 08/27/2024 1:17 PM CDT Temperature 36.8 C (98.3 F) 06/11/2023 2:09 PM INSTRUCTOR OF NURSING Respiratory Rate 18 04/11/2023 1:51 PM CDT Oxygen Saturation 93% 08/27/2024 1:17 PM CDT Inhaled Oxygen Concentration - - Weight 89.8 kg (198 lb) 08/27/2024 1:17 PM CDT Height 175.3 cm (5' 9 ) 08/27/2024 1:17 PM CDT Body Mass Index 29.24 08/27/2024 1:17 PM CDT Plan of Treatment Health Maintenance Due Date Last Done Comments Colon Cancer Screening-Colonoscopy 1960 Depression Screening 1960 Hepatitis C Screening 1960 Prostate Cancer Screening-PSA 1960 Hepatitis B Screening 1978 Regular Well Visit/Exam 18-64 1978 Zoster Vaccine (1 of 2) 2010 Covid-19 Vaccine (3 - 2023-2 5 season) 2024 10/03/2020, 09/12/2020 DTaP/Tdap/Td Vaccine (2 - Td or Tdap) 07/12/2024 07/12/2014 Influenza Vaccine (Season Ended) 2025 07/12/2014 Pneumococcal vaccine <65 Aged Out 06/11/2023 No longer eligible based on patient's age to complete this topic Procedures Procedure Name Priority Date/Time Associated Diagnosis [...] PM CDT Narrative 09/28/2024 2:59 PM CDT [facility] Cardiology [address], [place] [address] [address] [facility] [address], [place] [address] P:[phone] P:[phone] Echocardiographic Report Patient Name: TRINO RAIN R : 1960 Study Date: 09/28/2024 2:06:19 PM Gender: M Tech: Location: [facility] Provider: ELSI SHEEHAN Height(Cm): 175 BSA: 2.09 [...] FINDINGS: Interpretation Site: Exam was interpreted at [facility]. Left Ventricle: Normal left ventricular systolic function. [...] regurgitation. Electronically Signed By: Dr. Lora Dawson [facility] 09/28/2024 2:59:23 PM CDT Procedure Note Lora Dawson MD - 09/28/2024 [facility] Cardiology [address] [facility] [address] [address] [address] [facility] [address], [place], [place] [address] P:[phone] P:[phone] Echocardiographic Report Patient Name: TRINO RAIN R : 1960 Study Date: 09/28/2024 2:06:19 PM Gender: M Tech: Location: [facility] Provider: ELSI SHEEHAN Height(Cm): 175 BSA: 2.09 [...] FINDINGS: Interpretation Site: Exam was interpreted at [facility]. Left Ventricle: Normal left ventricular systolic function. [...] regurgitation. Electronically Signed By: Dr. Lora Dawson [facility] 09/28/2024 2:59:23 PM CDT Elsi Sheehan MD [...] Final Result from Last 3 Months [facility] [id number] [facility] [id number] [facility] [id number] Care Teams Nut Roaster Relationship Specialty Start Date End Date Jarred Bateman MD [address] [place] [id number] PCP - General Family Medicine 10/13/21
--- OUTSIDE RECORDS SUMMARY | 2024-10-28 00:35 | XMS_ITS | Clinical Summary ---
Author Organization [facility] Address [address] [place] [address] Phone Care Team Providers Care Brain Picker Name Role Phone Jarred Bateman MD Primary Care Provider [phone] Allergies No known active allergies Medications indapamide (LOZOL) 2.5 MG Tablet Take 2.5 mg by mouth daily. 03/01/2019 Active Multiple Vitamins-Mineral s (MULTIVITAMIN MEN PO) Take 1 Tab by mouth daily. Active ibuprofen (MOTRIN) 400 MG Tablet Take 400 mg by mouth every 8 hours as needed. Active candesartan (ATACAND) 8 MG Tablet TK 1 T PO QD 10/12/2019 Active Family History Medical History Relation Name Comments Rheumatoid Arthritis Brother 1 Liver Cancer Father Dementia Mother Cancer Paternal Grandmother Rheumatoid Arthritis Sister 1 Relation Name Status Comments Brother 1 Alive Brother 2 Alive Father Mother Alive Paternal Grandmother Sister 1 Alive Sister 2 (Age 42) infection in heart lining Social History Tobacco Use Types Packs/Day Years Used Date Smoking Tobacco: Former Cigarettes 0.5 4 1 981 - 1985 Smokeless Tobacco: Never Alcohol Use Standard Drinks/Week Comments Yes 1 (1 standard drink = 0.6 oz pur e alcohol) 1-2 beers 2-3 times a month PHQ-2 Answer Date Recorded Total Score - Questions 1-9 0 06/0 07/2020 Sexually Active Control Partners Comments Yes Female Sex and Gender Information Value Date Recorded Sex Assigned at Not on file Legal Sex Male 11:00 PM CDT Gender Identity Not on file Sexual Orientation Not on file Last Filed Vital Signs Vital Sign Reading Time Taken Comments Blood Pressure 148/92 11/16/2020 10:06 AM CDT Pulse 74 11/16/2020 10:06 AM CDT Temperature 36.6 C (97.8 F) 11/16/2020 10:06 AM CDT Respiratory Rate 16 11/16/2020 10:06 AM CDT Oxygen Saturation 97% 11/16/2020 10:06 AM CDT Inhaled Oxygen Concentration - - Weight 87 kg (191 lb 11.2 oz) 11/16/2020 10:06 A M CDT Height 175.3 cm (5' 9 ) 11/16/2020 10:06 AM CDT Body Mass Index 28.31 11/16/2020 10:06 AM CDT Plan of Treatment Health Maintenance Due Date Last Done Comments Hepatitis C Virus (HCV) Screening 1960 Colonoscopy 2005 Colorectal Cancer Screening 2005 Cologuard 2010 Immunochemical Fecal Occult Blood 2010 Pneumococcal Immunization (5 0+ years) (1 of 1 - PCV) 2010 Zoster Immunization (1 of 2) 2010 SARS-COV-2 Immunization (3 - season) 2024 10/03/2020, 09/12/2020 Influenza Immunization (Seas on Ended) 2025 07/12/2014 Respiratory Syncytial Virus (RSV) Immunization (Adult) (1 - 1-dose 75+ series) 10/10/2035 DTaP/Tdap/Td Immunization Discontinued 07/12/2014 TdaP Immunization Completed 07/12/2014 Hepatitis B Immunization Aged Out No longer eligible based on patient's age to complete this topic Meningococcal Immunization (ACWY) Aged Out No longer eligible based on patient's age to complete this topic Rotavirus Immunization Aged Out No lo nger eligible based on patient's age to complete this topic [place] [address] [facility] OAP Care Teams Brain Picker Relationship Specialty Start Date End Date Jarred Bateman MD [address] [place] [id number] PCP - General Family Medicine 04/27/19
[2024-10-28 09:45] VITALS: BP 130/83; PULSE 82; RESP 16; TEMP 36.2; O2SAT 100
[2024-10-28] MEDS: LACTATED RINGERS 1,000 ML 150 ML IV CONT (09:55)
--- NOTE | 2024-10-28 10:13 | P.PNAN_ITS ---
Anes - Initial Pre Proc Eval Procedure: Operation Date: 10/28/24 11:00 Proposed Procedures p Colonoscopy - Leonard Villavicencio MD Date/Time: 10/28/24 10:13 Surgeon: Leonard Villavicencio MD Pre Op Diagnosis: hx of colon polyps Patient Data Age: 64 Gender: M Height: 1.75 m Weight: 88.7 kg Last Vital Signs Temp 36.2 C L 10/28/24 09:45 Pulse 82 10/28/24 09:45 Resp 16 10/28/24 09:45 BP 130/83 10/28/24 09:45 Pulse Ox 100 10/28/24 09:45 O2 Del Method Room Air 10/28/24 09:45 Allergies Allergy/AdvReac Type Severity Reaction Status Date / Time No Known Allergies Allergy Mild Verified 10/28/24 09:43 Home Medications Medication Instructions Recorded Confirmed Type M.V.I. Adult 1 tablet PO DAILY 02/22/22 10/28/24 History sacubitril 24 mg-valsartan 26 mg 1 tablet PO BID #60 tabs 02/23/22 10/28/24 Rx tablet (Entresto) melatonin 5 mg tablet 5 mg PO QHS 08/20/22 10/28/24 History metoprolol succinate 25 mg 25 mg PO DAILY 08/20/22 10/28/24 History tablet,extended release 24 hr Patient hx anesthesia problems: none Family hx anesthesia problems: none Results Review: All pre-operative results and documents have been reviewed as part of the pre- operative evaluation. PENDING SALE TO [facility] Past Medical History Medical History Low testosterone Hypothyroidism (acquired) Hyperlipidemia Major depressive disorder Post-COVID syndrome Unspecified systolic (congestive) heart failure Nonrheumatic mitral (valve) insufficiency Migraine with aura, not intractable, without status migrainosus Personal history of colonic polyps HTN (hypertension) Abnormal stress test Surgical History Surgical History History of laparoscopic cholecystectomy 02/2007 History of cardiac cath Family History Family History Father Cancer Social History Social History Smoking packs per day: 0.5 Smoking cigarettes per day: 10.0 Years smoked: 2 Smoking pack-years: 1.00 Smoking status: Never smoker Tobacco type: cigarettes Second hand tobacco smoke exposure: No Alcohol intake: current Drinks per week: 1 Alcohol use details: rarely Substance use: never Substance use type: does not use Lack of Transportation: No Lack of Food: Never True Current Housing: I Have Housing Concerned About Future Housing: No Difficulty Paying Gas/Electric Bills: No Difficulty Paying for Meds: No Currently Unemployed: No Education: Trade/Vocational Certificate Difficulty w/ Childcare or Family Care: No Living arrangements: with family Occupation/Education: other Gender identity (if verbalized by the patient): Male Sexual Orientation (if Verbalized by the Patient): Straight or Heterosexual Spiritual care concerns: No Anes - Eval Final PreProcedure Day of Procedure 10/28/24 10:13 Patient weight: overweight Heart: regular rate and rhythm Lungs: clear to auscultation Airway: Mallampati scale class III and special considerations poor opening Neurological: alert and oriented Last oral intake: >/= 8 hours ASA classification: III Emergent: no Anesthetic plan: proceed Anesthesia type and monitoring: general GIVS and standard monitoring Results Review: All pre-operative results and documents have been reviewed as part of the pre-operative evaluation. Informed Consent: The patient's anesthetic plan and its attendant risks and benefits were discussed with the patient/family/POA. Questions were solicited and answers provided to the satisfaction of the patient/family/POA.
--- NOTE | 2024-10-28 10:33 | PM.IMHP ---
H&P: HPI History of Present Illness Date/Time: 10/28/24 10:33 Chief Complaint: History of colon polyps Narrative: The patient has a history of colonic polyps, the last colonoscopy was 5 years ago. Review of Systems Review of Systems: All systems reviewed & are unremarkable except as noted in HPI and below PMFSH Past Medical History Medical History Low testosterone Hypothyroidism (acquired) Hyperlipidemia Major depressive disorder Post-COVID syndrome Unspecified systolic (congestive) heart failure Nonrheumatic mitral (valve) insufficiency Migraine with aura, not intractable, without status migrainosus Personal history of colonic polyps HTN (hypertension) Abnormal stress test Surgical History Surgical History History of laparoscopic cholecystectomy 02/2007 History of cardiac cath Family History Family History Father Cancer Social History Social History Smoking packs per day: 0.5 Smoking cigarettes per day: 10.0 Years smoked: 2 Smoking pack-years: 1.00 Smoking status: Never smoker Tobacco type: cigarettes Second hand tobacco smoke exposure: No Alcohol intake: current Drinks per week: 1 Alcohol use details: rarely Substance use: never Substance use type: does not use Lack of Transportation: No Lack of Food: Never True Current Housing: I Have Housing Concerned About Future Housing: No Difficulty Paying Gas/Electric Bills: No Difficulty Paying for Meds: No Currently Unemployed: No Education: Trade/Vocational Certificate Difficulty w/ Childcare or Family Care: No Living arrangements: with family Occupation/Education: other Gender identity (if verbalized by the patient): Male Sexual Orientation (if Verbalized by the Patient): Straight or Heterosexual Spiritual care concerns: No Meds Home Medications and Allergies Home Medications Medication Instructions Recorded Confirmed Type M.V.I. Adult 1 tablet PO DAILY 02/22/22 10/28/24 History sacubitril 24 mg-valsartan 26 mg 1 tablet PO BID #60 tabs 02/23/22 10/28/24 Rx tablet (Entresto) melatonin 5 mg tablet 5 mg PO QHS 08/20/22 10/28/24 History metoprolol succinate 25 mg 25 mg PO DAILY 08/20/22 10/28/24 History tablet,extended release 24 hr Allergies Allergy/AdvReac Type Severity Reaction Status Date / Time No Known Allergies Allergy Mild Verified 10/28/24 09:43 Vital Signs Vital Signs - 24 hr 10/28/24 09:45 Temperature 97.1 F L Pulse Rate 82 Respiratory Rate 16 Blood Pressure 130/83 Pulse Oximetry 100 Oxygen Delivery Room Air Exam Const: General: cooperative and healthy appearing Resp: Effort & Inspection: normal respiratory effort and able to speak in complete sentences Auscultation: clear to auscultation bilaterally Cardio: Rate: regular rate Rhythm: regular rhythm GI: Inspection: normal to inspection GI Palp: No No hepatosplenomegaly present Auscultation: normal bowel sounds Rectal Exam: deferred Skin: General skin exam: normal color Psych: Appearance: grossly normal Mental Status: mental status grossly normal Assessment and Plan Assessment and plan (1) Personal history of colonic polyps: Code(s): Z86.010 - Personal history of colon polyps Status: Acute Assessment and Plan: The patient is deemed a good candidate for the procedure. Consent signed. Will proceed.
[2024-10-28 11:01] VITALS: BP 126/84; PULSE 86; RESP 20; O2SAT 96
[2024-10-28 11:11] VITALS: BP 124/85; PULSE 82; RESP 18; O2SAT 100
[2024-10-28 11:21] VITALS: BP 120/83; PULSE 81; RESP 18; O2SAT 99
== END 2024-10-28 11:35 | disposition home or self-care (01) ==
PROVIDERS: PCP Family Medicine; Referring Provider Family Medicine; Visit Provider Internal Medicine Gastroenterology
PROC: 0DJD8ZZ Inspection of Lower Intestinal Tract, Via Natural or Artificial Opening Endoscopic (ICD-10-PCS; CPT 45378; principal; 2024-10-28 11:00)
DX: Z12.31 Encounter for screening mammogram for malignant neoplasm of breast (principal); E29.1 Testicular hypofunction; E03.9 Hypothyroidism, unspecified; F32.9 Major depressive disorder, single episode, unspecified; I11.0 Hypertensive heart disease with heart failure; I50.20 Unspecified systolic (congestive) heart failure; I34.0 Nonrheumatic mitral (valve) insufficiency; G43.109 Migraine with aura, not intractable, without status migrainosus; Z98.890 Other specified postprocedural states; Z90.49 Acquired absence of other specified parts of digestive tract; Z98.61 Coronary angioplasty status; Z86.0100 Personal history of colon polyps, unspecified; Z80.9 Family history of malignant neoplasm, unspecified
CPT/HCPCS: 45378; J2704; J7120